=== PATIENT | male | born 1985 | race Caucasian/White ===

== ENCOUNTER 2021-03-24 12:17 | Emergency (ER) | payer MEDICARE, OTHER ==
[2021-03-24 12:58] LABS: HEMOGLOBIN 16.3 gm/dl (14.0-17.5); RED BLOOD COUNT 5.59 M/UL (4.20-5.50); WHITE BLOOD COUNT 13.9 K/UL (4.5-11.0)
[2021-03-24] MEDS ORDERED: FLOMAX0.4 MG PO (15:26)
[2021-03-24] MEDS ORDERED: HYDROCODONE-AC1 EACH PO (15:26)
== END 2021-03-24 15:30 | disposition home or self-care (01) ==
LOC: ER1 12:17
PROVIDERS: Student in an Organized Health Care Education/Training Program
DX: N13.2 Hydronephrosis with renal and ureteral calculous obstruction (principal)
CPT/HCPCS: 80053; 81001; 83690; 85025; 96374; 99284; J2405